=== PATIENT | female | born 1960 | race Caucasian/White ===

== ENCOUNTER 2016-06-29 18:48 | Emergency (ER) | payer BC ==
[~2016-06-29] VITALS: Ht 163.8 cm; Wt 109.5 kg
[2016-06-29 18:52] VITALS: TEMP 36.9; Ht 163.8 cm; Wt 109.5 kg
[2016-06-29] MEDS ORDERED: ONDANSETRON INJ 2 MG/ML 2 ML VIAL IV STA (19:03)
[2016-06-29] MEDS ORDERED: MoRPHine SULFATE 4 MG/ML 1 ML CARP\\VIAL IV STA (19:03)
--- NOTE | 2016-06-29 19:07 | EMERGENCY ROOM VISIT NOTE ---
History Report prepared by Anabela: Kathrin Thompson Under the Supervision of: Dr. Sheldon Cortes M.D. First contact with patient: 18:58 Chief Complaint: WOUND INFECTION Stated Complaint: BOIL/SPIDER BITE ON VAGINA Nursing Triage Summary: Pt c/o boil on mid abdomen, began , History of the same, takes antibiotics, it gets better, then it comes back. Draining. History of Present Illness The patient is a 55 year old female who presents to the Emergency Room with complaints of worsening pelvic/perivaginal redness and swelling that began about 4 days ago. She also complains of pain to the same area that shoots down her left leg. She denies any drainage from the swollen area. She had chills throughout the day today but she has not taken her temperature. The patient did follow up with her PCP who thought it could be a boil that could need to be lanced. She was going to get scheduled with gynecology, but her pain became more intense over the past few days so she decided to come to the ER. Source of History: patient Onset: 4 days ago Position: pelvis Timing: worsening Associated Symptoms: + chills Review of Systems See HPI for pertinent positives & negatives. A total of 10 systems reviewed and were otherwise negative. Past Medical & Surgical Medical Problems: (1) Epilepsy (2) HTN (hypertension) Old medical records were reviewed. Nurse's notes were reviewed and I agree with. Family History No pertinent family history stated. Social History Smoking Status: Former Smoker Alcohol Use: none Drug Use: none Marital Status: Housing Status: lives with significant other Current/Historical Medications Scheduled Cephalexin Monohydrate (Keflex), 500 MG PO TID Lisinopril (Zestril), 20 MG PO DAILY Sulfa/Trimethoprim (Bactrim Ds 800MG/160MG), 1 TAB PO BID Scheduled PRN Oxycodone Immediate Rel Tab (Roxicodone Ir), 1-2 TAB PO Q4H PRN for Severe Pain Allergies Coded Allergies: No Known Allergies (Unverified , 06/29/16) Physical Exam Vital Signs Date Time Temp Pulse Resp B/P Pulse Ox O2 Delivery O2 Flow Rate FiO2 06/29/16 18:52 36.9 96 17 136/76 95 Room Air Physical Exam General: Non-ill appearing middle aged female. Well developed well nourished in no acute distress, breathing comfortably on room air. Normal speech HEENT: Normal cephalic atraumatic. Pupils are equal round and reactive to light. Extraocular movements are intact. Sclerae are anicteric. Oropharynx is pink with moist mucous membranes. No swelling of the mouth lips or tongue. Neck: Supple with a midline trachea. No meningeal signs or stiffness, no JVD or bruits. No Stridor. Chest: Clear to auscultation bilaterally. No wheezes or rhonchi. No increased work of breathing. Heart: regular rate and rhythm. Abdomen: Soft nontender, nondistended without rebound guarding or rigidity. Pelvic: (performed in the presence of a female nurse assembler truck trailer) The left labia is diffusely tender and swollen. Does not appear to have a Bartholin's abscess. Most fluctuance superiorly. Extremities: No cyanosis clubbing or edema. No calf tenderness or assymetry Spine/Back. Non tender to palpation. No CVA tenderness Skin: Good turgor without rashes. Neurologic exam: Cranial nerves two through 12 are intact. Motor and sensation are intact and symmetrical throughout. Medical Decision & Procedures ER Provider Diagnostic Interpretation: Ultrasound: Showed no evidence of drainable abscess Laboratory Results 06/29/16 19:20 Red Blood Count 4.56, Mean Corpuscular Volume 87.5, Mean Corpuscular Hemoglobin 29.6, Mean Corpuscular Hemoglobin Concent 33.8, Mean Platelet Volume 10.1, Neutrophils (%) (Auto) 74.3, Lymphocytes (%) (Auto) 16.5, Monocytes (%) (Auto) 7.4, Eosinophils (%) (Auto) 1.4, Basophils (%) (Auto) 0.2, Neutrophils # (Auto) 7.36, Lymphocytes # (Auto) 1.64, Monocytes # (Auto) 0.73, Eosinophils # (Auto) 0.14, Basophils # (Auto) 0.02 06/29/16 19:20 Test 06/29/16 19:20 White Blood Count 9.91 K/uL (4.8-10.8) Red Blood Count 4.56 M/uL (4.2-5.4) Hemoglobin 13.5 g/dL (12.0-16.0) Hematocrit 39.9 % (37-47) Mean Corpuscular Volume 87.5 fL (80-100) Mean Corpuscular Hemoglobin 29.6 pg (25-34) Mean Corpuscular Hemoglobin Concent 33.8 g/dl (32-36) Platelet Count 202 K/uL (130-400) Mean Platelet Volume 10.1 fL (7.4-10.4) Neutrophils (%) (Auto) 74.3 % Lymphocytes (%) (Auto) 16.5 % Monocytes (%) (Auto) 7.4 % Eosinophils (%) (Auto) 1.4 % Basophils (%) (Auto) 0.2 % Neutrophils # (Auto) 7.36 K/uL (1.4-6.5) Lymphocytes # (Auto) 1.64 K/uL (1.2-3.4) Monocytes # (Auto) 0.73 K/uL (0.11-0.59) Eosinophils # (Auto) 0.14 K/uL (0-0.5) Basophils # (Auto) 0.02 K/uL (0-0.2) RDW Standard Deviation 44.0 fL (36.4-46.3) RDW Coefficient of Variation 13.6 % (11.5-14.5) Immature Granulocyte % (Auto) 0.2 % Immature Granulocyte # (Auto) 0.02 K/uL (0.00-0.02) Anion Gap 7.0 mmol/L (3-11) Est Creatinine Clear Calc Drug Dose 101.0 ml/min Estimated GFR () 102.6 Estimated GFR (Non- 88.5 BUN/Creatinine Ratio 16.3 (10-20) Calcium Level 8.4 mg/dl (8.5-10.1) Laboratory studies as stated above per my review. Medications Administered Medications (Trade) Dose Ordered Sig/Alanna Route Start Time Stop Time Status Last Admin Dose Admin Morphine Sulfate (MoRPHine SULFATE INJ) 4 mg NOW STAT IV 06/29/16 19:03 06/29/16 19:04 DC 06/29/16 19:21 4 MG Ondansetron HCl (Zofran Inj) 4 mg NOW STAT IV 06/29/16 19:03 06/29/16 19:04 DC 06/29/16 19:21 4 MG ED Course 1899: The patient was evaluated in room B10, and a complete history and physical examination were performed. 1902: Ordered Zofran Inj 4 mg IV, Morphine Sulfate 4 mg IV. 1934: I discussed the case with Dr. Michael Keita Gynecology. He recommended starting the patient on antibiotics. 2114: Ordered Oxycodone HCL 1 homepack PO, Trimethoprim/Sulfamethoxazole 1 homepack PO, Cephalexin Monohydrate 1 homepack PO. Medical Decision Differential diagnosis includes Bartholin abscess, infection, folliculitis, abscess. This patient comes in as described above she has pain and swelling just lateral to the left labia. On exam she is swollen in this area and tender. There is nothing has come to a head. She does not appear to have a Bartholin abscess internally. IV access established she has no white count or fever to suggest infection. She's had no acute electrolyte or metabolic abnormalities. She was given morphine 4 mg IV and Zofran 4 mg IV. I did order ultrasound to rule out a drainable abscess. There was no drainable abscess. I will start the patient both on Bactrim and Keflex for broad-spectrum coverage most likely this is more of a folliculitis/cellulitis.It could also be related to chemical/topical exposure. At this point, it does not involve the perineum and there is nothing to suggest a deep infection or Jaskaran's gangrene. I will give the patient home pack of OxyIR as well as a prescription for pain that she can use one or 2 pills every 4-6 hours as needed. She was warned that it could make her drowsy and do not take before drinking, driving, working. I encouraged her to follow up with Dr. Rodriguez on Friday for recheck he is a cook house laborer. She was given his contact information. She should return over the weekend if increasing pain or swelling, redness or warmth, any new problems concerns. Consults Time Called: 1929 Consulting Physician: Dr. Michael Keita Gynecology Returned Call: 1934 I discussed the case with him. He recommended starting the patient on antibiotics. Impression Primary Impression: Folliculitis Additional Impressions: Groin fullness Groin discomfort Scribe Attestation The scribe's documentation has been prepared under my direction and personally reviewed by me in its entirety. I confirm that the note above accurately reflects all work, treatment, procedures, and medical decision making performed by me. Departure Information Dispostion Home / Self-Care Prescriptions Oxycodone Immediate Rel Tab (ROXICODONE IR) 5 Mg Tab 1-2 TAB PO Q4H Y for Severe Pain, #24 TAB Prov: Sheldon Cortes M.D. 06/29/16 Cephalexin Monohydrate (Keflex) 500 Mg Cap 500 MG PO TID for 10 Days, #30 CAP Prov: Sheldon Cortes M.D. 06/29/16 Sulfa/Trimethoprim (Bactrim Ds 800MG/160MG) Tab 1 TAB PO BID, #20 TAB Prov: Sheldon Cortes M.D. 06/29/16 Referrals Charan Rico M.D. (PCP) Patient Instructions [facility] Additional Instructions Rest. Return if: Increasing pain, worsening of symptoms, fever or chills, any new problems or concerns Use Bactrim double strength twice a day for 10 days total Use Keflex 500 mg 3 times a day for 10 days total For pain, use ibuprofen 400 mg every 6 hours, take with food For more severe pain use OxyIR 5 mg, one or 2 pills every 4-6 hours as needed OxyIR may make you drowsy and do not take before drinking, driving, working Follow-up with Dr. Yates(gynecology)_on Friday for recheck Problem Qualifiers
[2016-06-29 19:31] LABS: BASO % 0.2 %; BASO ABS # 0.02 K/uL (0-0.2); COMPLETE YES; EOS % 1.4 %; HEMATOCRIT 39.9 % (37-47); IG% 0.2 %; LYMPH % 16.5 %; LYMPH ABS # 1.64 K/uL (1.2-3.4); MEAN CELL VOLUME 87.5 fL (80-100); MEAN CORPUSCULAR HEMOGLOBIN 29.6 pg (25-34); MEAN CORPUSCULAR HGB CONC 33.8 g/dl (32-36); MEAN PLATELET VOLUME 10.1 fL (7.4-10.4); MONO % 7.4 %; NEUT % 74.3 %; PLATELET COUNT 202 K/uL (130-400); RED BLOOD COUNT 4.56 M/uL (4.2-5.4); WHITE BLOOD COUNT 9.91 K/uL (4.8-10.8)
[2016-06-29] MEDS ORDERED: LISI-725 PO (19:39)
[2016-06-29 19:47] LABS: BUN/CREATININE RATIO 16.3 (10-20); CALCIUM 8.4 mg/dl (8.5-10.1); CREATININE 0.75 mg/dl (0.60-1.20)
[2016-06-29] MEDS ORDERED: SEPTRA DS HOME PACK 1 EA VIAL PO ONE (21:15)
[2016-06-29] MEDS ORDERED: OXYCODONE IR HOME PACK PO ONE (21:15)
[2016-06-29] MEDS ORDERED: CEPHALEXIN 500MG HOME PACK 1 EA BTL PO ONE (21:15)
[2016-06-29] MEDS ORDERED: CEPH500C PO (21:19)
[2016-06-29] MEDS ORDERED: SULF800T23 PO (21:19)
[2016-06-29] MEDS ORDERED: OXYC1TAB3 PO (21:19)
--- NOTE | 2016-06-29 21:44 | DIAGNOSTIC IMAGING REPORT ---
PERITONEAL ULTRASOUND CLINICAL HISTORY: Left labial swelling. Possible abscess. COMPARISON STUDY: No previous studies for comparison. FINDINGS: There is a left labial edema. There are no fluid collections to indicate an abscess. IMPRESSION: Moderate left labial edema. There are no fluid collections to indicate an abscess. Electronically signed by: James Tatum M.D. 06/29/2016 9:42 PM Dictated Date/Time: 06/29/2016 9:41 PM
[2016-06-29 22:03] VITALS: BP 129/81; PULSE 89; O2SAT 98
== END 2016-06-29 22:04 | disposition home or self-care (01) ==
LOC: C.EDB 18:50
DX: L73.9 Follicular disorder, unspecified (principal); R10.30 Lower abdominal pain, unspecified; G40.909 Epilepsy, unspecified, not intractable, without status epilepticus; I10 Essential (primary) hypertension; Z87.891 Personal history of nicotine dependence; Z79.899 Other long term (current) drug therapy